=== PATIENT | male | born 1995 | race Two or more races ===

== ENCOUNTER 2016-06-26 21:51 | Emergency (ER) | payer SELFPAY ==
[~2016-06-26] VITALS: Ht 188 cm; Wt 127.0 kg
[2016-06-27] MEDS ORDERED: KETOROLAC TROMETH 30 MG/ML 1ML VIAL IV ONE (00:45)
[2016-06-27] MEDS ORDERED: cefTRIAXone 1GM/50ML D5W 50 ML IV ONE (02:45)
[2016-06-27 02:53] VITALS: BP 122/76
== END 2016-06-27 03:18 | disposition home or self-care (01) ==
LOC: EDBD 21:51 → ER 21:56
DX: S86.911A Strain of unspecified muscle(s) and tendon(s) at lower leg level, right leg, initial encounter (principal); R07.81 Pleurodynia; X58.XXXA Exposure to other specified factors, initial encounter; Y93.89 Activity, other specified; Y92.410 Unspecified street and highway as the place of occurrence of the external cause; Y99.8 Other external cause status
CPT/HCPCS: 29505; 71101; 73562; 96374; 99284; J1885